=== PATIENT | male | born 1965 | race Caucasian/White ===

== ENCOUNTER → 2019-09-19 08:33 | Outpatient (CLI) | payer SELFPAY ==
[2019-09-19 07:54] VITALS: BMI 29.5
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
[2019-09-19 13:13] LABS: Cholesterol 182 mg/dL (200); High Density Lipoprotein 42 mg/dL; Triglycerides 115 mg/dL; Very Low Density Lipoprotein 23 mg/dL (5-40)
== END ==
PROVIDERS: Referring Provider Physician Assistant Surgical; Visit Provider Physician Assistant Surgical
DX: Z00.00 Encounter for general adult medical examination without abnormal findings (principal)
CPT/HCPCS: 36415; 71046; 80061

== ENCOUNTER → 2019-09-19 09:50 | Outpatient (REF) | payer SELFPAY ==
[2019-09-19 07:54] VITALS: BMI 29.5
--- NOTE | 2019-09-19 13:01 | STRESSREP ---
Stress Test Report Date: 09/19/2019 Procedure: Exercise tolerance test Indications: Preemployment Consent: Per the patient Procedure: The patient exercised on a Danny protocol for 11 minutes achieving a peak heart rate of 164 bpm (99 % predicted maximal heart rate) with a peak blood pressure 158/80 mmHg and a peak MET capacity of approximately 13.3 mET's. The baseline ECG demonstrated normal sinus rhythm. The peak exercise ECG demonstrated sinus tachycardia with no significant ischemic changes. [There were no cardiac dysrhythmias pretest, during exercise, or recovery]. The functional capacity was considered normal for age. The patient had no complaint of chest discomfort during exercise or recovery. The examination was discontinued secondary to achieving target heart rate. Impression: 1. Technically adequate (percent predicted maximal heart rate greater than 85%) exercise tolerance test 2. Stress test is negative for exercise-induced chest pain. 3. Stress test test is negative for exercise-induced EKG changes of ischemia. 4. Functional capacity is normal for age This note was generated with [employer] software. It may contain incorrect words, spelling, and punctuation that were not noted in checking the note before signing.
== END ==
LOC: CVS 09:50
PROVIDERS: Referring Provider Physician Assistant Surgical; Visit Provider Physician Assistant Surgical
DX: I10 Essential (primary) hypertension (principal)
CPT/HCPCS: 93017